=== PATIENT | female | born 1940 | race Caucasian/White ===

== ENCOUNTER 2020-11-10 11:59 | Outpatient (REF) | payer MEDICARE, SELFPAY ==
[2020-11-10 12:36] LABS: MANUAL DIFF FLAG NO
[2020-11-10 12:43] LABS: Basophils Absolute Auto 0.1 X10*3/uL (0.0-0.2); Basophils Percent Auto 1.3 % (0-2); Eosinophils Absolute Auto 0.1 X10*3/uL (0.0-0.4); Eosinophils Percent Auto 2.7 % (0-4); Hematocrit 46.8 % (37-47); Hemoglobin 15.2 g/dl (12.0-16.0); Imm Gran Abs Auto 0.01 X10*3/uL (0.00-0.03); Imm Gran Pct Auto 0.2 % (0.0-0.4); Lymphocytes Absolute Auto 1.7 X10*3/uL (1.2-4.9); Lymphocytes Percent Auto 34.6 % (20-40); Mean Corpuscular HGB Conc 32.5 g/dl (31.0-35.0); Mean Corpuscular Hemoglobin 29.3 pg (27.0-33.0); Mean Corpuscular Volume 90.3 fL (80-98); Mean Platelet Volume 10.3 fL (9.4-12.3); Monocytes Absolute Auto 0.4 X10*3/uL (0.1-1.2); Monocytes Percent Auto 8.4 % (2-11); Neutrophils Absolute Auto 2.5 X10*3/uL (2.0-8.3); Neutrophils Percent Auto 52.8 % (45-73); Platelet Count 232 X10*3/uL (160-400); Red Blood Count 5.18 X10*6/uL (4.20-5.50); Red Cell Distribution Width 13.2 % (11.0-16.0); White Blood Count 4.8 X10*3/uL (4.8-10.8)
[2020-11-10 13:45] LABS: Erythrocyte Sedimentation Rate 3 MM/HR (0-20)
== END 2020-11-10 12:00 | disposition home or self-care (01) ==
LOC: HO.LAB 11:59
PROVIDERS: PCP Internal Medicine Pulmonary Disease; Visit Provider Psychiatry & Neurology Neurology
DX: J32.9 Chronic sinusitis, unspecified (principal)
CPT/HCPCS: 36415; 85025; 85652

== ENCOUNTER 2020-12-17 13:42 | Outpatient (REF) | payer MEDICARE, SELFPAY ==
--- NOTE | 2020-12-17 13:49 | CT_ITS ---
EXAMINATION: CT HEAD WITHOUT CONTRAST CLINICAL INFORMATION: Chronic sinusitis, tension headache. COMPARISON: None TECHNIQUE: Contiguous axial imaging was performed from the skull base to vertex without intravenous administration of contrast. This CT examination was performed using dose optimization techniques as appropriate, variously including the following: *Automated exposure control *Adjustment of mA and/or kV according to patient size (this includes techniques or standardized protocols for targeted exams where dose is matched to indication/reason for exam; i.e. extremities or head) *Use of iterative reconstruction technique DLP: 603 mGy-cm FINDINGS: There is no evidence of acute intracranial hemorrhage or territorial infarction. No abnormal mass effect or midline shift is seen. Holt to white matter differentiation is well preserved. No extra-axial fluid collections are identified. The ventricles are normal in size. There is no abnormal attenuation within the brain parenchyma. There is scattered dural calcification seen along the frontal lobes and interhemispheric fissure. The osseous structures and soft tissues are normal. The mastoid air cells and visualized portions of the paranasal sinuses are well aerated. CT/CT head/brain wo con IMPRESSION: No acute intracranial process seen. The sinuses are clear.
== END 2020-12-17 13:43 | disposition home or self-care (01) ==
LOC: HO.CT 13:42
PROVIDERS: PCP Internal Medicine Pulmonary Disease; Visit Provider Psychiatry & Neurology Neurology
DX: J32.9 Chronic sinusitis, unspecified (principal)
CPT/HCPCS: 70450

== ENCOUNTER 2022-01-22 07:09 | Outpatient (REF) | payer MEDICARE, SELFPAY ==
[2022-01-22 07:20] LABS: MANUAL DIFF FLAG NO
[2022-01-22 07:37] LABS: Basophils Absolute Auto 0.1 X10*3/uL (0.0-0.2); Basophils Percent Auto 1.6 % (0-2); Eosinophils Absolute Auto 0.2 X10*3/uL (0.0-0.4); Eosinophils Percent Auto 3.4 % (0-4); Hematocrit 44.4 % (37.0-47.0); Hemoglobin 14.6 g/dl (12.0-16.0); Imm Gran Abs Auto 0.01 X10*3/uL (0.00-0.03); Imm Gran Pct Auto 0.2 % (0.0-0.4); Lymphocytes Absolute Auto 1.5 X10*3/uL (1.2-4.9); Lymphocytes Percent Auto 33.3 % (20-40); Mean Corpuscular HGB Conc 32.9 g/dl (31.0-35.0); Mean Corpuscular Hemoglobin 29.3 pg (27.0-33.0); Mean Platelet Volume 10.3 fL (9.4-12.3); Monocytes Absolute Auto 0.4 X10*3/uL (0.1-1.2); Monocytes Percent Auto 8.7 % (2-11); Neutrophils Absolute Auto 2.4 x10*3/uL (2.0-8.3); Neutrophils Percent Auto 52.8 % (45-73); Platelet Count 210 X10*3/uL (160-400); Red Blood Count 4.99 X10*6/uL (4.20-5.50); Red Cell Distribution Width 13.7 % (11.0-16.0); White Blood Count 4.5 X10*3/uL (4.8-10.8)
[2022-01-22 08:24] LABS: Vitamin D 25-OH Total 11.1 ng/mL (>30)
[2022-01-22 08:27] LABS: Alanine Aminotransferase 14 U/L (0-31); Albumin Level 4.1 g/dL (3.5-5.0); Alkaline Phosphatase 92 U/L (39-117); Anion Gap 12 (12-20); Aspartate Amino Transferase 20 U/L (5-31); Bilirubin Total 0.8 mg/dL (0.0-1.0); Blood Urea Nitrogen 20 mg/dL (9-16); Calcium 9.7 mg/dL (8.4-10.2); Carbon Dioxide 27 mmol/L (22-29); Chloride 107 mmol/L (96-108); Cholesterol 201 mg/dL; Estimated Glomerular Filt Rate > 60; Glucose Fasting 94 mg/dL (60-99); HDL Cholesterol 85 mg/dL; LDL Cholesterol Calculated 105 mg/dl; Potassium 3.8 mmol/L (3.3-5.1); Sodium 142 mmol/L (135-145); Total Protein 6.9 g/dL (6.5-8.0); Triglycerides 58 mg/dL
== END 2022-01-22 07:10 | disposition home or self-care (01) ==
LOC: HO.LAB 07:09
PROVIDERS: PCP Internal Medicine; Visit Provider Internal Medicine
DX: E78.00 Pure hypercholesterolemia, unspecified (principal); M54.9 Dorsalgia, unspecified
CPT/HCPCS: 36415; 80053; 80061; 82306; 85025

== ENCOUNTER 2022-01-27 12:37 | Outpatient (REF) | payer MEDICARE, SELFPAY ==
--- NOTE | ~2022-01-27 | MM_ITS ---
EXAMINATION: BONE DENSITOMETRY CLINICAL INDICATION: Postmenopausal. COMPARISON: None (current study represents initial baseline exam). TECHNIQUE: Using a [employer]ORT[employer] DXA System (software version: 13.1) manufactured by [employer], dual-energy x-ray absorptiometry was performed of the lumbar spine and left hip. The images are of good technical quality. Summary results are attached. FINDINGS: AP SPINE L1-L4: BMD 0.913 g/cm2, Z-score -0.5, T-score -2.2, osteopenia. LEFT FEMUR, NECK: BMD 0.625 g/cm2, Z-score -0.9, T-score -3.0, osteoporosis. LEFT FEMUR, TOTAL: BMD 0.643 g/cm2, Z-score -1.0, T-score -2.9, osteoporosis. IDENTIFIED RISK FACTORS: Osteoporosis. Early menopause, secondary osteoporosis, left oophorectomy. HISTORY OF FRACTURE: None listed. MEDICATIONS: Calcium supplements or multivitamin, vitamin D. MM/XR DEXA axial skeleton IMPRESSION: 1. DIAGNOSIS: Osteoporosis based on the lowest T-score value of -3.0 in the femoral neck applying World Health Organization criteria. 2. 10-YEAR FRACTURE RISK PREDICTION, FRAX: According to the guidelines, FRAX calculation should only be performed on patients in the osteopenia bone density category. Therefore, FRAX was not performed on this patient. 3. Treatment Recommendations: NOF guidelines recommend consideration for treatment in postmenopausal women and men age 50 and older presenting with the following: -A hip or vertebral (clinical or morphometric) fracture. -T-score less than or equal to -2.5 at the femoral neck or spine after appropriate evaluation to exclude secondary causes. -Low bone mass at the hip or spine and a 10-year fracture probability by FRAX of greater than or equal to 3% for hip fracture or greater than or equal to 20% for major osteoporotic fracture based on the [place] adapted WHO algorithm. 4. Other Recommendations: All treatment decisions require clinical judgment and consideration of individual patient factors, including patient preferences, comorbidities, previous drug use, risk factors not captured in the FRAX model (e.g. frailty, falls, vitamin D deficiency, increased bone turnover, interval significant decline in bone density) and possible under or overestimation of fracture risk by FRAX. Additional medical evaluation for secondary cause of low bone mineral density may be appropriate. FUTURE SCAN RECOMMENDATION: People with diagnosed cases of osteoporosis or at high risk for fracture should have regular bone mineral density tests. For patients eligible for Medicare, routine testing is allowed once every 2 years. The testing frequency can be increased to one year for patients who have rapidly progressing disease, those who are receiving or discontinuing medical therapy to restore bone mass, or have additional risk factors.
--- NOTE | ~2022-01-27 | MM_ITS ---
EXAMINATION: MM SCREENING DIGITAL BREAST TOMOSYNTHESIS, BILATERAL CLINICAL INFORMATION: Screening. Asymptomatic. The lifetime risk of breast cancer based on the Tyrer-Cuzick Model is 2%. COMPARISON: Outside mammography: 12/24/2020, 12/23/2019, 12/20/2018, 12/07/2017 ([facility]). TECHNIQUE: Digital breast tomosynthesis is performed in both the craniocaudal and mediolateral oblique views along with computer-aided detection (CAD). Synthesized 2D images are generated from the tomosynthesis. FINDINGS: The breasts are almost entirely fatty (ACR BI-RADS breast composition Category a). Background stromal and fibroglandular densities are stable. There is no interval mass or architectural abnormality or abnormal calcifications. 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 The axilla and skin contours are unremarkable. There are no significant changes. MM/MM tomosynthesis screening BI IMPRESSION: No significant changes from prior studies. ASSESSMENT: BI-RADS 2: Benign RECOMMENDATION: Routine annual mammography screening. This patient's information was entered into a reminder system with a target due date for their next mammogram.
== END 2022-01-27 12:38 | disposition home or self-care (01) ==
LOC: HO.MAMMO 12:37
PROVIDERS: PCP Internal Medicine; Visit Provider Internal Medicine
DX: Z13.820 Encounter for screening for osteoporosis (principal); Z78.0 Asymptomatic menopausal state; Z12.31 Encounter for screening mammogram for malignant neoplasm of breast
CPT/HCPCS: 77063; 77067; 77080

== ENCOUNTER 2022-01-31 08:41 | Day surgery (SDC) | payer MEDICARE, SELFPAY ==
[2022-01-24 14:31] VITALS: BMI 29.2
--- NOTE | 2022-01-27 10:26 | HP_ITS ---
DATE OF SERVICE: 01/31/2022 HISTORY OF PRESENT ILLNESS: The patient is an 81-year-old female who is scheduled for cataract surgery with Dr. Smith. She was seen in the office 01/24/2022 for periodic checkup. The patient takes meloxicam 7.5 mg p.r.n. for arthritis pain. She lists allergies to Excedrin, Bactrim, and Levaquin. PAST MEDICAL HISTORY: Significant for back pain, elevated cholesterol, tension headaches, and hypertension last year. PAST SURGICAL HISTORY: Appendectomy in 28, TNA 3 years old, history of ovarian cysts. FAMILY HISTORY: Mother at 93. Father at 85. One brother at 65. One sister is a prison. SOCIAL HISTORY: Lives alone. No children. She is a piano artist. REVIEW OF SYSTEMS: No fevers or chills. No weight change. No chest pains or palpitations. No shortness of breath. No abdominal pain or heartburn. No dysuria. Some arthritis in her back. Appetite is normal. Sleep is occasionally disrupted. No other complaints. PHYSICAL EXAMINATION: GENERAL: She is awake and alert, in no distress. VITAL SIGNS: Temperature is 99, blood pressure 130/80, respirations 12, pulse 72. HEENT: Pupils equal. TMs clear. Pharynx clear. Some nasal edema. HEART: Sounds S1, S2. Regular rate. LUNGS: Clear. ABDOMEN: Soft, nontender. Positive bowel sounds. No HSM. EXTREMITIES: No clubbing, cyanosis, or edema. Pulses are intact. NEUROLOGIC: Cranial nerves II through XII are intact. Otherwise nonfocal. She is awake and alert. ASSESSMENT AND PLAN: 1. Preop cataracts, medically stable for the proposed procedure. 2. Low vitamin D, taking p.o. 3. Elevated cholesterol. She has a good risk ratio and is not on any medication. She is medically stable for the proposed procedure. MD LEDA Rolle/DANY / [id number]
--- NOTE | 2022-01-27 12:59 | MHC.SHP ---
Pre-Procedural Eval Section A Date of Service: 01/27/22 The patient is an INPATIENT: No Changes since office visit: No Cold of Flu in the past 2 weeks, No New Medical Problems, No Changes in Medication and No Patient answered all questions The History & Physical has been completed within 30 days and I have reviewed it.: Yes Section B Chief Complaint: cataract right eye Allergies: Allergies Allergy/AdvReac Type Severity Reaction Status Date / Time acetaminophen Allergy cant Verified 01/24/22 14:28 [From Excedrin Extra remember Strength] Rxn so long ago aspirin Allergy cant Verified 01/24/22 14:28 [From Excedrin Extra remember Strength] Rxn so long ago caffeine Allergy cant Verified 01/24/22 14:28 [From Excedrin Extra remember Strength] Rxn so long ago levofloxacin [From Levaquin] Allergy Swelling Verified 01/24/22 14:28 of ears, Burning of Eyes sulfamethoxazole Allergy tearing Verified 01/24/22 14:28 [From Bactrim] and burning of eyes trimethoprim [From Bactrim] Allergy tearing Verified 01/24/22 14:28 and burning of eyes Plan Diagnosis/Plan: Unchanged I have reviewed the history and physical and performed a pertinent physical examination on my patient. No changes have occurred unless specified.
[2022-01-31 09:58] VITALS: BP 143/72; PULSE 93; RESP 18; TEMP 36.3; O2SAT 94
[2022-01-31] MEDS: Tetracaine HCl/PF 0.5% Oph Sol 4 ML DROPS 1 DROP EYE-RIGHT (10:02)
--- NOTE | 2022-01-31 10:03 | HO.ANESPROP2 ---
HPI - Anesthesia Eval Consult details Narrative: Right eye Cataract [facility] Past Medical History Medical History (Updated 01/24/22 @ 14:24 by Francisca Gil, RN) Arthritis Back pain Cataracts, bilateral COVID-19 vaccine series completed Lichen sclerosus Family History Family history of problems with anesthesia: No Surgical History Surgical History (Updated 01/24/22 @ 14:23 by Francisca Gil RN) History of tonsillectomy and adenoidectomy Hx of unilateral oophorectomy History of Problems with Anesthesia: No Social History Social History Are you a primary health care / medical job titles to a significant other at home: No Do you presently have visiting nurse or other home services: No Patient Tobacco Use Status: Never used Tobacco Second Hand Smoke Exposure: No Use of substances other than those prescribed or required for medical reasons: No Have you been hit, kicked, punched, or otherwise hurt by someone within the past year? If so, by whom?: No Are you DNR?: No Advance Directives: No Advance Directives Information Provided: No Advance Directives on File: No Recently lost weight without trying: No Eating poorly because of decreased appetite: No Nutrition Risks: No Nutritional Risk Patient : No : No Poor oral hygiene: No (Capped teeth) Meds Allergies Allergy/AdvReac Type Severity Reaction Status Date / Time acetaminophen Allergy cant Verified 01/24/22 14:28 [From Excedrin Extra remember Strength] Rxn so long ago aspirin Allergy cant Verified 01/24/22 14:28 [From Excedrin Extra remember Strength] Rxn so long ago caffeine Allergy cant Verified 01/24/22 14:28 [From Excedrin Extra remember Strength] Rxn so long ago levofloxacin [From Levaquin] Allergy Swelling Verified 01/24/22 14:28 of ears, Burning of Eyes sulfamethoxazole Allergy tearing Verified 01/24/22 14:28 [From Bactrim] and burning of eyes trimethoprim [From Bactrim] Allergy tearing Verified 01/24/22 14:28 and burning of eyes Active Medications: Current Medications Lactated Ringer's (Lr) 500 mls @ 50 mls/hr IVCONT .Q10H THEE Povidone Iodine (Povidone Iodine 5 % Ophth Soln 30 Ml Bottle) 1 appl EYE-RIGHT PREOP PRN PRN Reason: Pre-Op Surgical Implant Prophy Home Medications Medication Instructions Recorded Confirmed Last Taken Type clobetasol 01/24/22 01/24/22 Unknown History meloxicam 7.5 mg tablet 1 tab PO DAILY PRN 01/24/22 01/24/22 Unknown History Exam Exam Date and Time: January 31, 2022 1003 Height,Weight and Vital Signs: Height 5 ft Weight 68.039 kg Last Vital Signs Temp 97.3 F 01/31/22 09:58 Pulse 93 01/31/22 09:58 Resp 18 01/31/22 09:58 BP 143/72 H 01/31/22 09:58 Pulse Ox 94 01/31/22 09:58 Airway Mallampati Class: II TM Dist: >3cm Neck ROM: Full Loose/Missing/Broken Teeth: No Heart: rrr+s1s2 Lungs: cta b/l Assessment and Plan Assessment Anesthesia Assessment: Anesthesia Plan Discussed and Chart Reviewed Final Anesthetic Review Family History of Problems with Anesthesia: No History of Problems with Anesthesia: No NPO: Yes ASA Class: II Final Preanesthetic Review: No Changes in Pt Med Stat, Meds/Allgs Chart Reviewed, Consent Obtained/Reviewed and Anes Risks/Benef Reviewed Patient Risk: Intermediate Procedure Risk: Low Assessment/Block/Sedation in SS: Assess/Block/Sedation-SS Anesthetic Plan Anesthetic Plan: MAC: and Agree w/ Assess. and Plan Disposition: Standard PACU
[2022-01-31] MEDS: Tropicamide 1 % Ophth Sol 3 ML BTL 1 DROP EYE-RIGHT ×3 (10:04→10:10)
[2022-01-31] MEDS: Phenylephrine HCL 2.5% Oph SoL 2 ML BOTTLE 1 DROP EYE-RIGHT ×3 (10:06→10:12)
[2022-01-31 10:21] VITALS: BP 143/72; PULSE 93; RESP 20; TEMP 36.2; O2SAT 94
--- NOTE | 2022-01-31 11:01 | HO.PNOPHT ---
Ophthalmology Procedure Procedure Date of Service: 01/31/22 Ophthalmology Viscoelastic: Jonathan Hardent Dual Pack Pro Ophthalmology Lenses: TECDONYA [id number] (15) Procedure Notes: PREOPERATIVE DIAGNOSIS: Decreased visual acuity right eye secondary to cataract POSTOPERATIVE DIAGNOSIS: Same PROCEDURE: Right cataract extraction with intraocular lens insertion SURGEON: Obey Smith M.D. ANESTHESIA: Topical/MAC ESTIMATED BLOOD LOSS: None COMPLICATIONS: None After obtaining informed consent, the patient was brought to the operating room suite and placed in the supine position. After adequate sedation per anesthesia, topical drops of Tetracaine were given to the right eye. The eye was then prepped and draped in the usual sterile fashion. The operating room microscope was then positioned over the operative eye and a lid speculum placed. A paracentesis was created. Viscoelastic was then instilled into the anterior chamber. A three plane incision was then created temporally, utilizing a 2.85 mm keratome. Capsulotomy forceps were then utilized to create a circular tear capsulotomy. Hydrodissection and hydrodelineation were carried out until adequate mobilization of the nucleus occurred. Phacoemulsification was then utilized to remove the dense central nucleus followed by removal of the cortical material utilizing the automated aspiration irrigation unit. Viscoelastic was instilled into the posterior capsular bag followed by placement of a posterior chamber intraocular lens without difficulty. The residual Viscoelastic was then removed utilizing the automated IA machine. The wound was checked and found to be watertight. The patient tolerated the procedure well and the lid speculum was removed. Intracameral injection of Vigamox 0.1 mL followed by a subtenon injection of Kenalog-40 0.2 mL were administered. The patient will be seen in the a.m.
[2022-01-31 11:22] VITALS: BP 139/74; PULSE 70; RESP 16; TEMP 36.4; O2SAT 100
== END 2022-01-31 11:35 | disposition home or self-care (01) ==
PROVIDERS: PCP Internal Medicine; Visit Provider Ophthalmology
PROC: (CPT 66985; principal; 2022-01-31 10:50)
DX: H25.11 Age-related nuclear cataract, right eye (principal); H54.7 Unspecified visual loss; Z83.511 Family history of glaucoma; E78.00 Pure hypercholesterolemia, unspecified; I10 Essential (primary) hypertension; E55.9 Vitamin D deficiency, unspecified; Z79.899 Other long term (current) drug therapy; Z88.1 Allergy status to other antibiotic agents; Z88.0 Allergy status to penicillin
CPT/HCPCS: 66984; J2250; J3010; J3300; V2632

== ENCOUNTER 2022-02-14 10:42 | Day surgery (SDC) | payer MEDICARE, SELFPAY ==
[2022-01-24 14:36] VITALS: BMI 29.2
--- NOTE | 2022-02-11 10:08 | HO.ANESPROP2 ---
Documented by User: Cecilia Dumont NP 02/11/22 10:09 HPI - Anesthesia Eval Consult details Narrative: 81yo F for Left Cataract Extraction IOL Insertion PCP cleared Right eye 01/31/22 [facility] Past Medical History Medical History (Updated 01/24/22 @ 14:24 by Francisca Gil, RN) Arthritis Back pain Cataracts, bilateral COVID-19 vaccine series completed Lichen sclerosus Family History Family history of problems with anesthesia: No Surgical History Surgical History (Updated 01/24/22 @ 14:23 by Francisca Gil RN) History of tonsillectomy and adenoidectomy Hx of unilateral oophorectomy History of Problems with Anesthesia: No Social History Social History Are you a primary pharmacy customer care specialist to a significant other at home: No Do you presently have visiting nurse or other home services: No Patient Tobacco Use Status: Never used Tobacco Second Hand Smoke Exposure: No Use of substances other than those prescribed or required for medical reasons: No Have you been hit, kicked, punched, or otherwise hurt by someone within the past year? If so, by whom?: No Are you DNR?: No Advance Directives: No Advance Directives Information Provided: No Advance Directives on File: No Recently lost weight without trying: No Eating poorly because of decreased appetite: No Nutrition Risks: No Nutritional Risk Patient : No : No Poor oral hygiene: No (Capped teeth) Meds Allergies Allergy/AdvReac Type Severity Reaction Status Date / Time acetaminophen Allergy cant Verified 01/24/22 14:28 [From Excedrin Extra remember Strength] Rxn so long ago aspirin Allergy cant Verified 01/24/22 14:28 [From Excedrin Extra remember Strength] Rxn so long ago caffeine Allergy cant Verified 01/24/22 14:28 [From Excedrin Extra remember Strength] Rxn so long ago levofloxacin [From Levaquin] Allergy Swelling Verified 01/24/22 14:28 of ears, Burning of Eyes sulfamethoxazole Allergy tearing Verified 01/24/22 14:28 [From Bactrim] and burning of eyes trimethoprim [From Bactrim] Allergy tearing Verified 01/24/22 14:28 and burning of eyes Home Medications Medication Instructions Recorded Confirmed Last Taken Type clobetasol 01/24/22 01/24/22 Unknown History meloxicam 7.5 mg tablet 1 tab PO DAILY PRN 01/24/22 01/24/22 Unknown History Exam Exam Date and Time: February 11, 2022 1008 Height,Weight and Vital Signs: Height 5 ft Weight 68.039 kg Assessment and Plan Assessment Anesthesia Assessment: Chart Reviewed Final Anesthetic Review Family History of Problems with Anesthesia: No History of Problems with Anesthesia: No Documented by User: Will Acosta MD 02/14/22 11:59 PMFSH Past Medical History Medical History (Updated 01/24/22 @ 14:24 by Francisca Gil RN) Arthritis Back pain Cataracts, bilateral COVID-19 vaccine series completed Lichen sclerosus Surgical History Surgical History (Updated 01/24/22 @ 14:23 by Francisca Gil RN) History of tonsillectomy and adenoidectomy Hx of unilateral oophorectomy Social History Social History Are you a primary pharmacy customer care specialist to a significant other at home: No Do you presently have visiting nurse or other home services: No Patient Tobacco Use Status: Never used Tobacco Second Hand Smoke Exposure: No Use of substances other than those prescribed or required for medical reasons: No Have you been hit, kicked, punched, or otherwise hurt by someone within the past year? If so, by whom?: No Are you DNR?: No Advance Directives: No Advance Directives Information Provided: No Advance Directives on File: No Recently lost weight without trying: No Eating poorly because of decreased appetite: No Nutrition Risks: No Nutritional Risk Patient : No : No Poor oral hygiene: No (Capped teeth) Meds Allergies Allergy/AdvReac Type Severity Reaction Status Date / Time acetaminophen Allergy cant Verified 01/24/22 14:28 [From Excedrin Extra remember Strength] Rxn so long ago aspirin Allergy cant Verified 01/24/22 14:28 [From Excedrin Extra remember Strength] Rxn so long ago caffeine Allergy cant Verified 01/24/22 14:28 [From Excedrin Extra remember Strength] Rxn so long ago levofloxacin [From Levaquin] Allergy Swelling Verified 01/24/22 14:28 of ears, Burning of Eyes sulfamethoxazole Allergy tearing Verified 01/24/22 14:28 [From Bactrim] and burning of eyes trimethoprim [From Bactrim] Allergy tearing Verified 01/24/22 14:28 and burning of eyes Home Medications Medication Instructions Recorded Confirmed Last Taken Type clobetasol 01/24/22 01/24/22 Unknown History meloxicam 7.5 mg tablet 1 tab PO DAILY PRN 01/24/22 01/24/22 Unknown History Exam Airway Mallampati Class: II TM Dist: >3cm Neck ROM: Full Loose/Missing/Broken Teeth: No Heart: rrr+s1s2 Lungs: cta b/l Assessment and Plan Assessment Anesthesia Assessment: Anesthesia Plan Discussed Final Anesthetic Review NPO: Yes ASA Class: III Final Preanesthetic Review: No Changes in Pt Med Stat, Meds/Allgs Chart Reviewed, Consent Obtained/Reviewed and Anes Risks/Benef Reviewed Patient Risk: Intermediate Procedure Risk: Low Assessment/Block/Sedation in SS: Assess/Block/Sedation-SS Anesthetic Plan Anesthetic Plan: MAC: and Agree w/ Assess. and Plan Disposition: Standard PACU
--- NOTE | 2022-02-11 14:41 | MHC.SHP ---
Pre-Procedural Eval Section A Date of Service: 02/11/22 The patient is an INPATIENT: No Changes since office visit: No Cold of Flu in the past 2 weeks, No New Medical Problems, No Changes in Medication and No Patient answered all questions The History & Physical has been completed within 30 days and I have reviewed it.: Yes Section B Chief Complaint: cataract left eye Allergies: Allergies Allergy/AdvReac Type Severity Reaction Status Date / Time acetaminophen Allergy cant Verified 01/24/22 14:28 [From Excedrin Extra remember Strength] Rxn so long ago aspirin Allergy cant Verified 01/24/22 14:28 [From Excedrin Extra remember Strength] Rxn so long ago caffeine Allergy cant Verified 01/24/22 14:28 [From Excedrin Extra remember Strength] Rxn so long ago levofloxacin [From Levaquin] Allergy Swelling Verified 01/24/22 14:28 of ears, Burning of Eyes sulfamethoxazole Allergy tearing Verified 01/24/22 14:28 [From Bactrim] and burning of eyes trimethoprim [From Bactrim] Allergy tearing Verified 01/24/22 14:28 and burning of eyes Plan Diagnosis/Plan: Unchanged I have reviewed the history and physical and performed a pertinent physical examination on my patient. No changes have occurred unless specified.
[2022-02-14 11:07] VITALS: BP 107/68; PULSE 84; RESP 16; TEMP 36.4; O2SAT 95
[2022-02-14] MEDS: Tetracaine HCl/PF 0.5% Oph Sol 4 ML DROPS 1 DROP EYE-LEFT (11:21)
[2022-02-14] MEDS: Lactated Ringers 500 ML 50 ML IV (11:21)
[2022-02-14] MEDS: Tropicamide 1 % Ophth Sol 3 ML BTL 1 DROP EYE-LEFT ×3 (11:22→11:30)
[2022-02-14] MEDS: Phenylephrine HCL 2.5% Oph SoL 2 ML BOTTLE 1 DROP EYE-LEFT ×3 (11:26→11:32)
--- NOTE | 2022-02-14 12:27 | HO.PNOPHT ---
Ophthalmology Procedure Procedure Date of Service: 02/14/22 Ophthalmology Viscoelastic: Healsaran Duet Dual Pack Pro Ophthalmology Lenses: TECDONYA [id number] (15) Procedure Notes: PREOPERATIVE DIAGNOSIS: Decreased visual acuity left eye secondary to cataract POSTOPERATIVE DIAGNOSIS: Same PROCEDURE: Left cataract extraction with intraocular lens insertion SURGEON: Obey Smith M.D. ANESTHESIA: Topical/MAC ESTIMATED BLOOD LOSS: None COMPLICATIONS: None After obtaining informed consent, the patient was brought to the operation room suite and placed in the supine position. After adequate sedation per anesthesia, topical drops of Tetracaine were given to the left eye. The eye was then prepped and draped in the usual sterile fashion. The operating room microscope was then positioned over the operative eye and a lid speculum placed. A paracentesis was created. Viscoelastic was then instilled into the anterior chamber. A three plane incision was then created temporally, utilizing a 2.85 mm keratome. Capsulotomy forceps were then utilized to create a circular tear capsulotomy. Hydrodissection and hydrodelineation were carried out until adequate mobilization of the nucleus occurred. Phacoemulsification was then utilized to remove the dense central nucleus followed by removal of the cortical material utilizing the automated aspiration irrigation unit. Viscoat elastic was instilled into the posterior capsular bag followed by placement of a posterior chamber intraocular lens without difficulty. The residual Viscoat elastic was then removed utilizing the automated IA machine. The wound was check and found to be watertight. The patient tolerated the procedure well and the lid speculum was removed. Intracameral injection of Vigamox 0.1 mL followed by a subtenon injection of Kenalog-40 0.2 mL were administered. The patient will be seen in the a.m.
[2022-02-14 12:51] VITALS: BP 156/87; PULSE 77; RESP 18; TEMP 36.3; O2SAT 96
== END 2022-02-14 13:08 | disposition home or self-care (01) ==
PROVIDERS: PCP Internal Medicine; Visit Provider Ophthalmology
PROC: (CPT 66985; principal; 2022-02-14 12:50)
DX: H25.12 Age-related nuclear cataract, left eye (principal); H54.7 Unspecified visual loss; Z83.511 Family history of glaucoma; I10 Essential (primary) hypertension; E78.00 Pure hypercholesterolemia, unspecified; Z79.899 Other long term (current) drug therapy; Z88.1 Allergy status to other antibiotic agents
CPT/HCPCS: 66984; J3010; J3300; V2632

== ENCOUNTER 2023-02-22 13:57 | Outpatient (REF) | payer MEDICARE, SELFPAY ==
--- NOTE | ~2023-02-22 | MM_ITS ---
EXAMINATION: MM SCREENING DIGITAL BREAST TOMOSYNTHESIS, BILATERAL CLINICAL INFORMATION: Screening. Asymptomatic. The lifetime risk of breast cancer based on the Tyrer-Cuzick Model is 2%. COMPARISON: Mammography: 01/27/2022,, 12/23/2019, 12/20/2018 TECHNIQUE: Digital breast tomosynthesis is performed in both the craniocaudal and mediolateral oblique views along with computer-aided detection (CAD). Synthesized 2D images are generated from the tomosynthesis. FINDINGS: The breasts are almost entirely fatty (ACR BI-RADS breast composition Category a). There is no interval mass or architectural abnormality or developing density. Grouped calcifications anterior upper outer left breast are again seen, circumferential oriented and most coarse, suggesting degenerating fibroadenoma. The axilla are unremarkable. The skin contours are smooth. There are no significant changes from prior exams. MM/MM tomosynthesis screening BI IMPRESSION: No mammographic evidence of malignancy. ASSESSMENT: BI-RADS 2: Benign RECOMMENDATION: Routine annual mammography screening. This patient's information was entered into a reminder system with a target due date for their next mammogram.
== END 2023-02-22 13:58 | disposition home or self-care (01) ==
LOC: HO.MAMMO 13:57
PROVIDERS: PCP Internal Medicine; Visit Provider Internal Medicine
DX: Z12.31 Encounter for screening mammogram for malignant neoplasm of breast (principal)
CPT/HCPCS: 77063; 77067

== ENCOUNTER 2023-04-10 08:22 | Outpatient (REF) | payer MEDICARE, SELFPAY ==
--- NOTE | ~2023-04-10 | XR_ITS ---
EXAMINATION: XR CERVICAL SPINE CLINICAL INFORMATION: Neck pain COMPARISON: None available. TECHNIQUE: 6 views of the cervical spine, inclusive of flexion and extension views, were obtained. FINDINGS: There is normal cervical lordosis. The vertebral heights and alignment is normal. There is loss of C4-C5, C5-C6 and C6-C7 disc heights with mild ventral spondylosis. On oblique views the neural foramina are patent. No visible acute fracture, dislocation or subluxation seen. The prevertebral and paravertebral soft tissues are normal. XR/XR cervical spine 5V IMPRESSION: Degenerative disc changes C4-C5, C5-C6 and C6-C7 disc levels with ventral spondylosis. No visible acute fracture, dislocation or subluxation seen.
[2023-04-10 08:39] LABS: MANUAL DIFF FLAG NO
[2023-04-10 08:49] LABS: Basophils Absolute Auto 0.1 X10*3/uL (0.0-0.2); Basophils Percent Auto 1.6 % (0-2); Eosinophils Absolute Auto 0.3 X10*3/uL (0.0-0.4); Eosinophils Percent Auto 6.1 % (0-4); Hematocrit 43.4 % (37.0-47.0); Hemoglobin 14.5 g/dl (12.0-16.0); Imm Gran Abs Auto 0.01 X10*3/uL (0.00-0.03); Imm Gran Pct Auto 0.2 % (0.0-0.4); Lymphocytes Absolute Auto 1.6 X10*3/uL (1.2-4.9); Lymphocytes Percent Auto 32.7 % (20-40); Mean Corpuscular HGB Conc 33.4 g/dl (31.0-35.0); Mean Corpuscular Hemoglobin 29.3 pg (27.0-33.0); Mean Corpuscular Volume 87.7 fL (80.0-98.0); Mean Platelet Volume 10.1 fL (9.4-12.3); Monocytes Absolute Auto 0.4 X10*3/uL (0.1-1.2); Monocytes Percent Auto 7.7 % (2-11); Neutrophils Absolute Auto 2.6 x10*3/uL (2.0-8.3); Neutrophils Percent Auto 51.7 % (45-73); Platelet Count 202 X10*3/uL (160-400); Red Blood Count 4.95 X10*6/uL (4.20-5.50); White Blood Count 4.9 X10*3/uL (4.8-10.8)
[2023-04-10 09:37] LABS: Alanine Aminotransferase 13 U/L (0-31); Albumin Level 3.9 g/dL (3.5-5.0); Alkaline Phosphatase 81 U/L (39-117); Anion Gap 12 (12-20); Aspartate Amino Transferase 18 U/L (5-31); Bilirubin Total 0.8 mg/dL (0.0-1.0); Blood Urea Nitrogen 25 mg/dL (9-16); Calcium 9.2 mg/dL (8.4-10.2); Carbon Dioxide 25 mmol/L (22-29); Chloride 110 mmol/L (96-108); Estimated Glomerular Filt Rate > 60; Glucose Random 99 mg/dL (60-115); Potassium 3.9 mmol/L (3.3-5.1); Sodium 143 mmol/L (135-145); Total Protein 6.2 g/dL (6.5-8.0)
[2023-04-10 10:02] LABS: Free T4 (Free Thyroxine) 0.92 ng/dL (0.71-1.85); Thyroid Stimulating Hormone 1.87 uIU/mL (0.32-4.0); Vitamin B12 191 pg/mL (200-900); Vitamin D 25-OH Total 37.8 ng/mL (>30)
== END 2023-04-10 08:23 | disposition home or self-care (01) ==
LOC: HO.XRAY 08:22
PROVIDERS: PCP Internal Medicine; Visit Provider Internal Medicine
DX: E55.9 Vitamin D deficiency, unspecified (principal); M81.0 Age-related osteoporosis without current pathological fracture; R53.83 Other fatigue; M54.2 Cervicalgia
CPT/HCPCS: 36415; 72050; 80053; 82306; 82607; 84439; 84443; 85025

== ENCOUNTER 2023-08-18 15:02 | Outpatient (REF) | payer MEDICARE, SELFPAY ==
--- NOTE | ~2023-08-18 | US_ITS ---
EXAMINATION: US EXTRACRANIAL CAROTID DUPLEX, BILATERAL CLINICAL INFORMATION: Dizziness. COMPARISON: None available. TECHNIQUE: Real-time ultrasound and Doppler techniques (integrating B-mode 2-D vascular images, Doppler spectral analysis and color-flow Doppler imaging) were utilized to interrogate the extracranial carotid arteries, the vertebral arteries and proximal subclavian arteries bilaterally. The degree of stenosis is determined by criteria similar to NASCET. FINDINGS: Right Side: 1. There is mild atherosclerotic plaque seen in the bifurcation/proximal ICA region. 2. The common carotid artery PSV proximally is 101 cm/s and distally 96 cm/s. 3. The proximal internal carotid artery velocities are 93 cm/s systolic and 22 cm/s diastolic. 4. The proximal external carotid artery PSV is 150 cm/s. 5. The vertebral artery shows antegrade flow. 6. The subclavian artery waveforms are normal. Left Side: 1. There is mild atherosclerotic plaque seen in the bifurcation/proximal ICA region. 2. The common carotid artery PSV proximally is 107 cm/s and distally 88 cm/s. 3. The proximal internal carotid artery velocities are 92 cm/s systolic and 32 cm/s diastolic. 4. The proximal external carotid artery PSV is 109 cm/s. 5. The vertebral artery shows antegrade flow. 6. The subclavian artery waveforms are normal. US/US carotid duplex BI IMPRESSION: 1. RIGHT: Minimal, non-hemodynamically significant stenosis of the proximal right internal carotid artery corresponding to a 0-49% stenosis by velocity criteria. 2. LEFT: Minimal, non-hemodynamically significant stenosis of the proximal left internal carotid artery corresponding to a 0-49% stenosis by velocity criteria.
== END 2023-08-18 15:03 | disposition home or self-care (01) ==
LOC: HO.US 15:02
PROVIDERS: PCP Internal Medicine; Visit Provider Internal Medicine
DX: R42 Dizziness and giddiness (principal); Z91.81 History of falling
CPT/HCPCS: 93880

== ENCOUNTER 2023-09-14 09:29 | Emergency (ER) | payer MEDICARE, SELFPAY ==
--- NOTE | 2023-09-14 | ECG_ITS ---
Test Reason : dizziness Blood Pressure : / mmHG Vent. Rate : 085 BPM Atrial Rate : 085 BPM P-R Int : 126 ms QRS Dur : 082 ms QT Int : 366 ms P-R-T Axes : 075 -08 005 degrees QTc Int : 435 ms Normal sinus rhythm Nonspecific T wave abnormality Abnormal ECG No previous ECGs available Referred By: Generic ED Physician Electronically Signed By:BRIGIDO REDDY MD
--- NOTE | ~2023-09-14 | CT_ITS ---
EXAMINATION: CT HEAD WITHOUT CONTRAST CLINICAL INFORMATION: Dizzy COMPARISON: 12/17/2020 TECHNIQUE: Contiguous axial imaging was performed from the skull base to vertex without intravenous administration of contrast. This CT examination was performed using dose optimization techniques as appropriate, variously including the following: *Automated exposure control *Adjustment of mA and/or kV according to patient size (this includes techniques or standardized protocols for targeted exams where dose is matched to indication/reason for exam; i.e. extremities or head) *Use of iterative reconstruction technique DLP: 558 mGy-cm FINDINGS: The ventricles and sulci are normal in size and configuration. No acute hemorrhage, mass effect or shift is evident. Holt-white differentiation is maintained. In the posterior fossa, the brainstem, cerebellum and fourth ventricle image normally. The orbits and calvarium are intact. The globes are aphakic. The paranasal sinuses and mastoid air cells are well pneumatized and clear. CT/CT head/brain wo IV con IMPRESSION: 1. Unremarkable noncontrast brain CT. No acute hemorrhage, mass effect or shift.
[2023-09-14 09:45] VITALS: BP 146/64; PULSE 77; RESP 18; TEMP 36.7; O2SAT 96; BMI 30.9
--- NOTE | 2023-09-14 10:02 | ED_ITS ---
HPI - General Adult General Chief complaint: Dizziness Stated complaint: dizzy Time Seen by Provider: 09/14/23 10:02 Source: patient Mode of arrival: ambulatory Limitations: no limitations History of Present Illness HPI narrative: Patient is an 82 year old assigned female at with a history of cataracts and arthritis presenting to the emergency department today with intermittent dizziness. Patient states that she has moments where she gets these feelings in her head that feels like a fuzzy sensation. Patient states that these episodes happen with a headache and feel like they originate behind her eyes. Patient states that she does not feel as if she is spinning or the room is spinning. Patient states that she does not feel as though she is going to pass out. Patient denies any lightheadedness, abdominal pain, nausea, vomiting, fever, chills, blurry vision, double vision, loss of vision, chest pain, difficulty breathing, shortness of breath, back pain, night sweats, pain with urination, increased urinary frequency, increased urinary urgency, blood in her urine or stool, syncope or a near syncopal episode, recent trauma or falls, bowel incontinence, bladder incontinence, bowel retention, bladder retention, or any other complaints at this time. Onset (ago): month(s) Severity: mild Pain Consistency: intermittent Relieving factors: none Exacerbating factors: none Associated symptoms: denies other symptoms Treatments prior to arrival: none Related Data Home Medications Medication Instructions Recorded Confirmed clobetasol 01/24/22 01/24/22 meloxicam 7.5 mg tablet 1 tab PO DAILY PRN Pain 01/24/22 01/24/22 Allergies Allergy/AdvReac Type Severity Reaction Status Date / Time acetaminophen Allergy cant Verified 01/24/22 14:28 [From Excedrin Extra remember Strength] Rxn so long ago aspirin Allergy cant Verified 01/24/22 14:28 [From Excedrin Extra remember Strength] Rxn so long ago caffeine Allergy cant Verified 01/24/22 14:28 [From Excedrin Extra remember Strength] Rxn so long ago levofloxacin [From Levaquin] Allergy Swelling Verified 01/24/22 14:28 of ears, Burning of Eyes sulfamethoxazole Allergy tearing Verified 01/24/22 14:28 [From Bactrim] and burning of eyes trimethoprim [From Bactrim] Allergy tearing Verified 01/24/22 14:28 and burning of eyes Review of Systems 2 Constitutional: Constitutional: Reports no additional constitutional complaints, Denies chills, Denies fever(s) and Denies night sweats Eyes: Eyes: Reports no additional eye complaints, Denies blurry vision, Denies change in vision, Denies diplopia, Denies eye discharge, Denies loss of vision and Denies eye pain ENT: Comments: intermittent fuzzy feeling Cardiovascular: Cardiovascular: Reports no additional cardiovascular complaints, Denies chest pain, Denies lightheadedness, Denies Loss of Consciousness and Denies dyspnea Respiratory: Respiratory: Reports no additional respiratory complaints and Denies dyspnea Gastrointestinal: Gastrointestinal: Reports no additional gastrointestinal complaints, Denies abdominal pain, Denies melena, Denies hematochezia, Denies change in bowel habits and Denies change in stool character Genitourinary: Genitourinary: Denies hematuria, Denies urinary frequency, Denies dysuria, Denies urinary incontinence, Denies urinary hesitancy and Denies urinary urgency Musculoskeletal: Musculoskeletal: Reports no additional musculoskeletal complaints, Denies numbness and Denies tingling Neurologic: Denies loss of vision, Denies numbness and Denies tingling Psychiatric: Psychiatric: Reports no additional psychiatric complaints Endocrine: Endocrine: Reports no additional endocrine complaints Hematologic/Lymphatic: Hematologic/Lymphatic: Reports no additional hematologic/lymphatic complaints Allergic/Immunologic: Allergic/Immunologic: Reports no additional allergic/immunologic complaints [facility] Past Medical History Attestation statement: The following information was validated with the patient. Source: old records reviewed and nursing notes reviewed Medical History Cataracts, bilateral COVID-19 vaccine series completed Lichen sclerosus Arthritis Back pain Surgical History Hx of unilateral oophorectomy History of tonsillectomy and adenoidectomy Social History Social History Are you a primary floor care technician to a significant other at home: No Do you presently have visiting nurse or other home services: No Patient Tobacco Use Status: Never used Tobacco Second Hand Smoke Exposure: No Advance Directives: No Advance Directives Information Provided: Yes Physical Exam ED Vital Signs: Vital Signs - 24 hr 09/14/23 09:45 Temperature 98.0 F Pulse Rate 77 Respiratory Rate 18 Blood Pressure 146/64 H Pulse Oximetry 96 Oxygen Delivery Method Room Air BMI result Body Mass Index 30.9 Const General: cooperative, no acute distress, alert and awake Nutritional Appearance: well nourished Orientation/consciousness: patient oriented x3 Limitations: no limitations HENMT Head: Yes normal to inspection and Yes atraumatic Ears: hearing grossly normal bilaterally and external ears normal General nose exam: Normal external nose present, no nasal discharge noted and no epistaxis Face and sinus: Yes normal facial exam, No abrasion and No laceration Mouth: Normal oral and palatal mucosa present, no drooling and no muffled voice Eyes General: appearance normal, both eyes and all related structures Periorbital: periorbital findings normal Eyelids: Yes eyelids normal Conjunctivae: conjunctivae normal Pupils: Equal, round and reactive pupils present EOM: EOMs intact bilaterally Neck Neck: Yes normal visual inspection, Yes full ROM and Yes no lymphadenopathy Chest Chest palpation & inspection: normal inspection of the chest Resp Effort & Inspection: normal respiratory effort and able to speak in complete sentences Auscultation: clear to auscultation bilaterally Cardio Rate: regular rate Rhythm: regular rhythm GI Inspection: Yes normal to inspection Neuro General: patient oriented x3 and moves all extremities Cranial nerves: Yes Equal, round and reactive pupils present Cognition (Neuro): normal cognition Motor exam (neuro): 5/5 motor strength present throughout Sensory Exam: Normal double simultaneous stimulation for sensation Coordination: [id number] test normal Extrem General: Yes normal to inspection, Yes full ROM and Yes capillary refill normal Psych Appearance: grossly normal Mental Status: mental status grossly normal Affect: normal affect Attitude: cooperative Thought process: Normal thought process present Thought content: Normal thought content present Insight: Good insight present (Psych) Medical Decision Making Medical Decision Making MDM Narrative: Patient is an 82 year old assigned female at with a history of arthritis and cataracts presenting to the emergency department today with an intermittent fuzzy feeling in the head. Patient's physical exam was unremarkable. Patient's blood work was unremarkable. Patient's head CT showed no acute process. Patient's clinical presentation is most consistent with an occular migraine given the the patient's description of her complaint and no neurologic deficits or examination findings. I explained my physical exam findings as well as all test results to the patient. I answered all questions asked by the patient.. I stressed the importance of the patient taking her medication as prescribed. I stressed the importance of the patient following up with her primary care provider and a neurologist. I stressed the importance of the patient returning to the emergency department immediately if her symptoms were to worsen or if she were to develop any dizziness, shortness of breath, difficulty breathing, chest pain, blurry vision, loss of vision, nausea, vomiting, abdominal pain, fever, chills, back pain, or any other complaints. Patient verbalized agreement and understanding with this treatment plan and discharge. Differential Diagnosis Differential Diagnoses: The differential diagnosis associated with the presentation includes Ocular migraine Migraine BPPV Brain mass Brain bleed CVA Admission/Observation Consideration of admission/observation: Escalation of care including admission/observation considered Patient would have been admitted to the hospital had her work up had any findings where hospital admission was appropriate and her clinical presentation warranted hospital admission. Lab Data MDM Lab Attestation statement: I reviewed the patient's lab results. My interpretation of these studies and their corresponding values is that they are grossly normal. 09/14/23 10:21 09/14/23 10:21 Labs: Lab Results 09/14/23 Range/Units 10:21 WBC 3.3 L (4.8-10.8) X10*3/uL RBC 4.81 (4.20-5.50) X10*6/uL Hgb 14.1 (12.0-16.0) g/dl Hct 41.9 (37.0-47.0) % MCV 87.1 (80.0-98.0) fL MCH 29.3 (27.0-33.0) pg MCHC 33.7 (31.0-35.0) g/dl RDW 14.0 (11.0-16.0) % Plt Count 175 (160-400) X10*3/uL MPV 9.9 (9.4-12.3) fL Immature Gran % (Auto) 0.3 (0.0-0.4) % Neut % (Auto) 52.1 (45-73) % Lymph % (Auto) 29.8 (20-40) % Phelps % (Auto) 13.5 H (2-11) % Eos % (Auto) 3.4 (0-4) % Baso % (Auto) 0.9 (0-2) % Lymph # (Auto) 1.0 L (1.2-4.9) X10*3/uL Phelps # (Auto) 0.4 (0.1-1.2) X10*3/uL Eos # (Auto) 0.1 (0.0-0.4) X10*3/uL Baso # (Auto) 0.0 (0.0-0.2) X10*3/uL Abs Immat Gran (auto) 0.01 (0.00-0.03) X10*3/uL Absolute Neuts (auto) 1.7 L (2.0-8.3) x10*3/uL Absolute Nucleated RBC 0.000 (0.0-0.012) X10*3/uL Nucleated RBC % (auto) 0.0 (0.0-0.2) /100WBC Sodium 140 (135-145) mmol/L Potassium 3.8 (3.3-5.1) mmol/L Chloride 108 (96-108) mmol/L Carbon Dioxide 23 (22-29) mmol/L Anion Gap 13 (12-20) BUN 20 H (9-16) mg/dL Creatinine 0.70 (0.5-1.4) mg/dL Estim Creat Clear Calc 55.7 Estimated GFR > 60 Random Glucose 93 (60-115) mg/dL Calcium 9.1 (8.4-10.2) mg/dL Independent Interpretation I performed an independent interpretation of an: CT Scan Interpretation: My interpretation is in agreement with the radiologist's impression of this imaging study. - EXAMINATION: CT HEAD WITHOUT CONTRAST CLINICAL INFORMATION: Dizzy COMPARISON: 12/17/2020 TECHNIQUE: Contiguous axial imaging was performed from the skull base to vertex without intravenous administration of contrast. This CT examination was performed using dose optimization techniques as appropriate, variously including the following: *Automated exposure control *Adjustment of mA and/or kV according to patient size (this includes techniques or standardized protocols for targeted exams where dose is matched to indication/reason for exam; i.e. extremities or head) *Use of iterative reconstruction technique DLP: 558 mGy-cm FINDINGS: The ventricles and sulci are normal in size and configuration. No acute hemorrhage, mass effect or shift is evident. Holt-white differentiation is maintained. In the posterior fossa, the brainstem, cerebellum and fourth ventricle image normally. The orbits and calvarium are intact. The globes are aphakic. The paranasal sinuses and mastoid air cells are well pneumatized and clear. CT/CT head/brain wo IV con IMPRESSION: 1. Unremarkable noncontrast brain CT. No acute hemorrhage, mass effect or shift. Dictated By: Oni Lambert MD Signed By: Electronically signed by Oni Lambert MD 09/14/23 1100 Radiology Impression Discussion of test interpretation with radiology: I have reviewed the radiologist's reading. Discharge Plan Discharge Clinical Impression: Ocular migraine Patient Disposition: Home, Self-Care Instructions: Ocular Migraine (ED) Additional Instructions: Follow up with your primary care provider and a neurologist. Return to the emergency department immediately if your symptoms worsen or if you develop any dizziness, shortness of breath, difficulty breathing, chest pain, blurry vision, loss of vision, nausea, vomiting, abdominal pain, fever, chills, back pain, or any other complaints. Prescriptions: No Action meloxicam 7.5 mg tablet 1 tab PO DAILY PRN (Reason: Pain) clobetasol Referrals: [facility] [place] Neuro/Sleep [Provider Group] (Call to establish and follow up with a neurologist. ) Bertrand Khoury MD [Primary Care Provider] - Print Language: Tanzanian
[2023-09-14 10:24] LABS: MANUAL DIFF FLAG NO
[2023-09-14 10:25] LABS: Basophils Percent Auto 0.9 % (0-2); Eosinophils Absolute Auto 0.1 X10*3/uL (0.0-0.4); Eosinophils Percent Auto 3.4 % (0-4); Hematocrit 41.9 % (37.0-47.0); Hemoglobin 14.1 g/dl (12.0-16.0); Imm Gran Abs Auto 0.01 X10*3/uL (0.00-0.03); Imm Gran Pct Auto 0.3 % (0.0-0.4); Lymphocytes Percent Auto 29.8 % (20-40); Mean Corpuscular HGB Conc 33.7 g/dl (31.0-35.0); Mean Corpuscular Hemoglobin 29.3 pg (27.0-33.0); Mean Corpuscular Volume 87.1 fL (80.0-98.0); Mean Platelet Volume 9.9 fL (9.4-12.3); Monocytes Absolute Auto 0.4 X10*3/uL (0.1-1.2); Monocytes Percent Auto 13.5 % (2-11); Neutrophils Absolute Auto 1.7 x10*3/uL (2.0-8.3); Neutrophils Percent Auto 52.1 % (45-73); Platelet Count 175 X10*3/uL (160-400); Red Blood Count 4.81 X10*6/uL (4.20-5.50); White Blood Count 3.3 X10*3/uL (4.8-10.8)
[2023-09-14 10:41] LABS: Anion Gap 13 (12-20); Blood Urea Nitrogen 20 mg/dL (9-16); Calcium 9.1 mg/dL (8.4-10.2); Carbon Dioxide 23 mmol/L (22-29); Chloride 108 mmol/L (96-108); Creatinine Clr Calc Pharmacy 55.7; Estimated Glomerular Filt Rate > 60; Glucose Random 93 mg/dL (60-115); Potassium 3.8 mmol/L (3.3-5.1); Sodium 140 mmol/L (135-145)
[2023-09-14 11:34] VITALS: BP 136/71; PULSE 71; RESP 16; TEMP 36.8; O2SAT 97
== END 2023-09-14 11:56 | disposition home or self-care (01) ==
PROVIDERS: Emergency Provider Emergency Medicine Emergency Medical Services; PCP Internal Medicine
DX: G43.109 Migraine with aura, not intractable, without status migrainosus (principal)
CPT/HCPCS: 36415; 70450; 80048; 85025; 93005; 99284

== ENCOUNTER 2023-10-12 07:08 | Outpatient (REF) | payer MEDICARE, SELFPAY ==
[2023-10-12 07:25] LABS: MANUAL DIFF FLAG NO
[2023-10-12 07:42] LABS: Basophils Absolute Auto 0.1 X10*3/uL (0.0-0.2); Basophils Percent Auto 1.5 % (0-2); Eosinophils Absolute Auto 0.2 X10*3/uL (0.0-0.4); Eosinophils Percent Auto 3.5 % (0-4); Hematocrit 42.8 % (37.0-47.0); Imm Gran Abs Auto 0.01 X10*3/uL (0.00-0.03); Imm Gran Pct Auto 0.2 % (0.0-0.4); Lymphocytes Absolute Auto 1.5 X10*3/uL (1.2-4.9); Lymphocytes Percent Auto 27.9 % (20-40); Mean Corpuscular HGB Conc 32.7 g/dl (31.0-35.0); Mean Corpuscular Volume 88.6 fL (80.0-98.0); Mean Platelet Volume 10.5 fL (9.4-12.3); Monocytes Absolute Auto 0.6 X10*3/uL (0.1-1.2); Monocytes Percent Auto 10.8 % (2-11); Neutrophils Absolute Auto 2.9 x10*3/uL (2.0-8.3); Neutrophils Percent Auto 56.1 % (45-73); Platelet Count 204 X10*3/uL (160-400); Red Blood Count 4.83 X10*6/uL (4.20-5.50); Red Cell Distribution Width 13.8 % (11.0-16.0); White Blood Count 5.2 X10*3/uL (4.8-10.8)
[2023-10-12 08:07] LABS: C Reactive Protein 0.18 mg/dL (< or = 0.50)
[2023-10-12 08:22] LABS: Vitamin D 25-OH Total 40.5 ng/mL (>30)
[2023-10-12 08:35] LABS: Vitamin B12 297 pg/mL (200-900)
[2023-10-12 08:36] LABS: Erythrocyte Sedimentation Rate 4 MM/HR (0-20)
[2023-10-13 12:58] LABS: Lyme Abs Screen <0.90 index
== END 2023-10-12 07:09 | disposition home or self-care (01) ==
LOC: HO.LAB 07:08
PROVIDERS: PCP Internal Medicine; Visit Provider Internal Medicine
DX: R42 Dizziness and giddiness (principal); E53.8 Deficiency of other specified B group vitamins; M85.80 Other specified disorders of bone density and structure, unspecified site
CPT/HCPCS: 36415; 82306; 82550; 82607; 85025; 85652; 86140; 86617; 86618

== ENCOUNTER → 2023-10-24 13:18 | Outpatient (REF) | payer MEDICARE, SELFPAY ==
--- NOTE | 2023-10-24 13:22 | HM_ITS ---
Conclusion: 1. Patient was monitored for total period of 2 days 2. Baseline was normal sinus with average heart of 86 beats per minute 3. No significant pauses noted 4. Occasional PVCs noted with total burden of 1% 5. Patient reported 1 symptom of dizziness that correlated with sinus rhythm MTDD
== END ==
LOC: HO.CARD 13:18
PROVIDERS: Visit Provider Psychiatry & Neurology Neurology
DX: R42 Dizziness and giddiness (principal)
CPT/HCPCS: 93225

== ENCOUNTER → 2023-10-24 13:22 | Outpatient (BNV) | payer MEDICARE, SELFPAY | PROVIDERS: Visit Provider Internal Medicine Cardiovascular Disease | DX: I49.1 Atrial premature depolarization (principal) | CPT/HCPCS: 93227 ==

== ENCOUNTER 2024-02-27 14:09 | Outpatient (REF) | payer MEDICARE, SELFPAY ==
--- NOTE | ~2024-02-27 | MM_ITS ---
EXAMINATION: MM SCREENING DIGITAL BREAST TOMOSYNTHESIS, BILATERAL CLINICAL INFORMATION: Screening. Asymptomatic. COMPARISON: Mammography: This study is compared with prior exams dating back to 2019. TECHNIQUE: Digital breast tomosynthesis is performed in both the craniocaudal and mediolateral oblique views along with computer-aided detection (CAD). Synthesized 2D images are generated from the tomosynthesis. FINDINGS: The breasts are almost entirely fatty (ACR BI-RADS breast composition Category a). There are no significant masses, abnormal calcifications, or other abnormalities. There are unchanged, grouped, benign calcifications in the upper outer quadrant of the left breast. MM/MM tomosynthesis screening BI IMPRESSION: No mammographic evidence of malignancy. ASSESSMENT: BI-RADS BI-RADS 2 - Benign Findings RECOMMENDATION: Routine annual mammography screening. 1 year F/U This examination should not preclude the clinical evaluation of a suspicious palpable abnormality. This patient's information was entered into a reminder system with a target due date for their next mammogram.
== END 2024-02-27 14:10 | disposition home or self-care (01) ==
LOC: HO.MAMMO 14:09
PROVIDERS: PCP Internal Medicine; Visit Provider Internal Medicine
DX: Z12.31 Encounter for screening mammogram for malignant neoplasm of breast (principal)
CPT/HCPCS: 77063; 77067

== ENCOUNTER → 2024-02-27 14:30 | Outpatient (BNV) | payer MEDICARE, SELFPAY | PROVIDERS: PCP Internal Medicine; Visit Provider Radiology Diagnostic Radiology | DX: Z12.31 Encounter for screening mammogram for malignant neoplasm of breast (principal) | CPT/HCPCS: 77063; 77067 ==

== ENCOUNTER 2024-03-13 08:08 | Outpatient (REF) | payer MEDICARE, SELFPAY ==
--- NOTE | ~2024-03-13 | XR_ITS ---
EXAMINATION: XR CERVICAL SPINE XR LUMBAR SPINE CLINICAL INFORMATION: Neck pain, low back pain. Patient stated no injury. COMPARISON: Cervical spine 04/10/2023. TECHNIQUE: 4 views of the cervical spine. 3 views of lumbar spine. FINDINGS: CERVICAL SPINE: Bones are diffusely demineralized. Mild rightward curvature of the cervical spine. C7 is obscured by overlying bone and soft tissues. Redemonstration of multilevel degenerative changes with loss of disc space height and subchondral sclerosis most advanced at C4-C5, but also redemonstrated at C5-C6 and possibly C6-C7, partially obscured. Degenerative changes in the imaged upper thoracic spine. Degenerative changes between the anterior arch of C1 and the odontoid. LUMBAR SPINE: Dextroscoliosis of the lumbar spine. The bones are diffusely demineralized. Degenerative changes in the bilateral sacroiliac joints. Facet arthritis in the [id number] lumbar spine. Advanced degenerative changes in the imaged lower thoracic spine. Possible compression fracture of a lower thoracic vertebral body should be evaluated with dedicated views of the thoracic spine. Advanced multilevel degenerative changes in the lumbar spine with multilevel loss of disc space height and subchondral sclerosis most notable at L3-L4 and L5-S1. Grade 1 anterolisthesis of L4 and L5 with loss of disc space height. XR/XR cervical spine 3V IMPRESSION: 1. Multilevel degenerative disc disease in the cervical spine most notable at C4-C5. 2. Grade 1 anterolisthesis of L4 and L5 with loss of disc space height. Advanced multilevel degenerative disc disease in the lumbar spine most notable at L3-L4 and L5-S1. 3. Possible compression fracture of a lower thoracic vertebral body should be evaluated with dedicated views of the thoracic spine.
--- NOTE | ~2024-03-13 | XR_ITS ---
EXAMINATION: XR CERVICAL SPINE XR LUMBAR SPINE CLINICAL INFORMATION: Neck pain, low back pain. Patient stated no injury. COMPARISON: Cervical spine 04/10/2023. TECHNIQUE: 4 views of the cervical spine. 3 views of lumbar spine. FINDINGS: CERVICAL SPINE: Bones are diffusely demineralized. Mild rightward curvature of the cervical spine. C7 is obscured by overlying bone and soft tissues. Redemonstration of multilevel degenerative changes with loss of disc space height and subchondral sclerosis most advanced at C4-C5, but also redemonstrated at C5-C6 and possibly C6-C7, partially obscured. Degenerative changes in the imaged upper thoracic spine. Degenerative changes between the anterior arch of C1 and the odontoid. LUMBAR SPINE: Dextroscoliosis of the lumbar spine. The bones are diffusely demineralized. Degenerative changes in the bilateral sacroiliac joints. Facet arthritis in the [id number] lumbar spine. Advanced degenerative changes in the imaged lower thoracic spine. Possible compression fracture of a lower thoracic vertebral body should be evaluated with dedicated views of the thoracic spine. Advanced multilevel degenerative changes in the lumbar spine with multilevel loss of disc space height and subchondral sclerosis most notable at L3-L4 and L5-S1. Grade 1 anterolisthesis of L4 and L5 with loss of disc space height. XR/XR lumbar spine 2-3V IMPRESSION: 1. Multilevel degenerative disc disease in the cervical spine most notable at C4-C5. 2. Grade 1 anterolisthesis of L4 and L5 with loss of disc space height. Advanced multilevel degenerative disc disease in the lumbar spine most notable at L3-L4 and L5-S1. 3. Possible compression fracture of a lower thoracic vertebral body should be evaluated with dedicated views of the thoracic spine.
[2024-03-13 09:33] LABS: Anion Gap 11 (12-20); Blood Urea Nitrogen 24 mg/dL (9-16); Calcium 9.1 mg/dL (8.4-10.2); Carbon Dioxide 26 mmol/L (22-29); Chloride 110 mmol/L (96-108); Estimated Glomerular Filt Rate > 60; Glucose Random 96 mg/dL (60-115); Potassium 3.8 mmol/L (3.3-5.1); Sodium 143 mmol/L (135-145)
== END 2024-03-13 08:09 | disposition home or self-care (01) ==
LOC: HO.XRAY 08:08
PROVIDERS: PCP Internal Medicine; Visit Provider Internal Medicine
DX: M54.2 Cervicalgia (principal); M54.50 Low back pain, unspecified; M81.0 Age-related osteoporosis without current pathological fracture
CPT/HCPCS: 36415; 72040; 72100; 80048

== ENCOUNTER 2024-04-13 09:02 | Outpatient (REF) | payer MEDICARE, SELFPAY ==
--- NOTE | ~2024-04-13 | XR_ITS ---
EXAMINATION: XR THORACIC SPINE CLINICAL INFORMATION: Back pain COMPARISON: None available. TECHNIQUE: 03/13/2024 cervical spine and lumbar spine x-rays FINDINGS: The bones are diffusely demineralized. S-shaped thoracolumbar scoliosis. Advanced multilevel degenerative changes in the thoracic spine. Several adjacent moderate anterior wedge compression deformities of T6, T7, T8 and T9 vertebral bodies as well as superior anterior endplate of T10 vertebral body of indeterminate age and etiology. XR/XR thoracic spine 3V IMPRESSION: 1. Advanced multilevel degenerative changes in the thoracic spine. 2. Several adjacent moderate anterior wedge compression deformities of T6, T7, T8 and T9 vertebral bodies as well as superior anterior endplate of T10 vertebral body of indeterminate age and etiology.
== END 2024-04-13 09:03 | disposition home or self-care (01) ==
LOC: HO.LAB 09:02
PROVIDERS: PCP Internal Medicine; Visit Provider Internal Medicine
DX: M54.6 Pain in thoracic spine (principal); M48.54XD Collapsed vertebra, not elsewhere classified, thoracic region, subsequent encounter for fracture with routine healing
CPT/HCPCS: 72072

== ENCOUNTER 2025-03-24 16:18 | Outpatient (REF) | payer MEDICARE, SELFPAY | END 2025-03-24 16:19 | disposition home or self-care (01) | LOC: HO.MAMMO 16:18 | PROVIDERS: Visit Provider Internal Medicine | DX: Z12.31 Encounter for screening mammogram for malignant neoplasm of breast (principal) | CPT/HCPCS: 77063; 77067 ==

== ENCOUNTER → 2025-03-24 16:30 | Outpatient (BNV) | payer MEDICARE, SELFPAY | PROVIDERS: Visit Provider Internal Medicine | DX: Z12.31 Encounter for screening mammogram for malignant neoplasm of breast (principal) | CPT/HCPCS: 77063; 77067 ==

== ENCOUNTER 2025-05-23 13:53 | Outpatient (AMB) | payer MEDICARE, SELFPAY ==
--- NOTE | 2025-05-23 14:15 | A.OFFPC_ITS ---
Vital Signs 05/23/25 14:22 Height 4 ft 11 in Weight 78.925 kg BMI 35.1 BP 134/64 Respiration 16 Pulse 88 Pulse Source Pulse Oximeter Temp 97.1 F Temp Source Temporal Artery Scan Pulse Oximetry (%) 98 Oxygen Delivery Method Room Air Intake Visit Reasons: routine Schedule Analyst Required: No Accompanied by: Self / Same As Patient Allergies acetaminophen (From Excedrin Extra Strength) Allergy (Verified 05/23/25 14:18) cant remember Rxn so long ago aspirin (From Excedrin Extra Strength) Allergy (Verified 05/23/25 14:18) cant remember Rxn so long ago caffeine (From Excedrin Extra Strength) Allergy (Verified 05/23/25 14:18) cant remember Rxn so long ago levofloxacin (From Levaquin) Allergy (Verified 05/23/25 14:18) Swelling of ears, Burning of Eyes sulfamethoxazole (From Bactrim) Allergy (Verified 05/23/25 14:18) tearing and burning of eyes trimethoprim (From Bactrim) Allergy (Verified 05/23/25 14:18) tearing and burning of eyes Medication List - Last Reconciled 05/23/25 by MEAGAN Dawson cholecalciferol (vitamin D3) 50 mcg PO DAILY clobetasol 0.05% 0.5 grams topical BEDTIME fluticasone propionate 50 mcg/actuation (Allergy Relief (fluticasone)) 1 spray intranasal Q12H meloxicam 1 tab PO DAILY PRN turmeric mg PO [Vitamin B12 PO] HPI HPI Comments History of Present Illness Details 84-year-old female with history of osteo porosis, bilateral cataracts, lichen sclerosis, chronic low back pain, chronic neck pain, osteoarthritis of the shoulders presents to the office today to establish care and for management of chronic conditions. Osteoporosis-no longer taking Fosamax. Reports that she was started on this about 3 years ago but discontinued on her own 2 years ago. Due for DEXA scan Chronic low back/thoracic/neck pain-XR of the cervical spine shows multilevel degenerative disc disease most notable at C4-C5 with grade 1 anterolisthesis of L4-L5 and loss of disc space height as well as multilevel degenerative disc disease in lumbar spine most notable at L3-L4 and L5-S1. There is also a possible compression fracture of a lower thoracic vertebral body. Taking meloxicam 7.5-15 mg daily. Requesting referral to physical therapy. No weakness, paresthesias, radiculopathy Bilateral shoulder pain-chronic, osteoarthritis. Taking meloxicam COncerns: as above Health Maintenance: Last mammogram 02/2025 with 1 year follow-up advised No longer undergoing colonoscopy Last DEXA scan 2021 ROS: General: No fevers, malaise, unintentional weight loss Cardiovascular: No chest pain, palpitations, or leg edema Respiratory: No shortness of breath, wheezing, cough GI: No abdominal pain, nausea, vomiting, diarrhea, constipation, melena, hematochezia : No dysuria, hematuria, increased urinary frequency, decreased urinary output MSK: See HPI Neuro: No headaches, weakness, paresthesias Skin: No rashes or lesions EXAM: Constitutional - Awake and Alert, No apparent distress Eyes - PERRL Cardiovascular - S1S2, RRR, No edema Respiratory - Normal lung expansion, Normal respiratory effort, No respiratory distress, CTA bilaterally Extremities - no calf tenderness bilaterally, no swelling Skin - Warm/Dry Neurological - Alert & oriented x3 Psychological - Appropriate affect [facility] Medical History Cataracts, bilateral COVID-19 vaccine series completed Lichen sclerosus Arthritis Back pain Surgical History Hx of unilateral oophorectomy History of tonsillectomy and adenoidectomy Social History Are you a primary care manager to a significant other at home: No Do you presently have visiting nurse or other home services: No Patient Tobacco Use Status: Never used Tobacco Second Hand Smoke Exposure: No Questionnaire PHQ-9 Over the last 2 weeks, how often have you been bothered by any of the following problems? 1. Little interest or pleasure in doing things: not at all 2. Feeling down, depressed, or hopeless: not at all 3. Trouble falling or staying asleep, or sleeping too much: several days 4. Feeling tired or having little energy: several days 5. Poor appetite or overeating: several days 6. Feeling bad about yourself - or that you are a failure or have let yourself or your family down: not at all 7. Trouble concentrating on things, such as reading the newspaper or watching television: not at all 8. Moving or speaking so slowly that other people could have noticed. Or the opposite - being so fidgety or restless that you have been moving around a lot more than usual: not at all 9. Thoughts that you would be better off or of hurting yourself in some way: not at all Total score: 3 Source: Developed by Drs. Jeronimo Cardenas, Yessi Connelly, Anatoliy Hale and colleagues, with an educational darline from [employer]. Thrive Questionnaire Date Thrive assessed: 05/23/25 I am a: Patient What is your living situation today?: I have a steady place to live Within the past 12 months, did the food you bought not last and you didn't have the money to get more?: Never true Within the past 12 months, did you worry whether your food would run out before you got money to buy more?: Never true Do you have trouble paying for medicines?: No Do you have trouble getting transportation to medical appointments?: No Do you have trouble paying your heating and electricity bill?: No Do you have trouble taking care of your child, family member or friend?: No Do you have trouble with day-to-day activities such as bathing, preparing meals, shopping, managing finances, etc.?: No Are you currently unemployed and looking for a job?: No Are you interested in more education?: No THRIVE Score: 0 DAMIAN-7 AMB Questionnaire DAMIAN-7 Date DAMIAN - 7 assessed: 05/23/25 Feeling nervous, anxious, or on edge: 0 = Not at all Not being able to stop or control worryin = Not at all Worrying too much about different things: 0 = Not at all Trouble relaxin = Not at all Being so restless that it is hard to sit still: 0 = Not at all Becoming easily annoyed or irritable: 0 = Not at all Feeling afraid as if something awful might happen: 0 = Not at all Total DAMIAN-7 score (0-4 normal; 5-9 mild; 10-14 moderate; 15-21 severe): 0 Source: Developed by Drs. Jeronimo Cardenas, Anatoliy Elizabeth and colleagues, with an educational darline from [employer]. Physical exam (Primary Care) Vital Signs: Last Vital Signs Temp 97.1 F 05/23/25 14:22 Pulse 88 05/23/25 14:22 Resp 16 05/23/25 14:22 BP 134/64 05/23/25 14:22 Pulse Ox 98 05/23/25 14:22 Oxygen Delivery Method Room Air 05/23/25 14:22 BMI result Body Mass Index 35.1 Tobacco/Smoking Status: Tobacco use Status Patient Tobacco Use Status Never used Tobacco 05/23/25 14:25 PHQ-9: PHQ-9 Score PHQ-9: Total score 3 05/23/25 14:29 Thrive Assessment: Date of Thrive Assessment Date Thrive assessed 05/23/25 05/23/25 14:29 Coding Level of Care Code New Pt Level 4 (91394) Complex EM visit Add On G2211 Diagnoses Osteoporosis M81.0 Osteoarthritis of both shoulders M19.011; M19.012 Chronic low back pain M54.50; G89.29 Chronic neck pain M54.2; G89.29 Assessment & Plan Assessment & Plan (1) Osteoporosis: Code(s): M81.0 - Age-related osteoporosis without current pathological fracture Category: Medical Plan: DEXA scan ordered. Continue vitamin-D. Recommend weight-bearing exercise (2) Osteoarthritis of both shoulders: Code(s): M19.011 - Primary osteoarthritis, right shoulder; M19.012 - Primary ost eoarthritis, left shoulder Category: Medical Plan: Continue meloxicam. Referred for physical therapy (3) Chronic low back pain: Code(s): M54.50 - Low back pain, unspecified; G89.29 - Other chronic pain Category: Medical Plan: Continue meloxicam. Referred for physical therapy (4) Chronic neck pain: Code(s): M54.2 - Cervicalgia; G89.29 - Other chronic pain Category: Medical Plan: Continue meloxicam. Referred for physical therapy Plan Follow-up in the office in 6 months for annual physical exam. Labs to be completed following visit and prior to next visit Orders: Orders Complete Blood Count Auto Diff Today M81.0 - Age-related osteoporosis without current pathological fracture, Z13.220 - Encounter for screening for lipoid disorders PT Evaluation and Treatment Today G89.29 - Other chronic pain, M19.011 - Primary osteoarthritis, right shoulder, M19.012 - Primary osteoarthritis, left shoulder, M54.2 - Cervicalgia, M54.50 - Low back pain, unspecified Hemoglobin A1c 6 Months Z00.00 - Encounter for general adult medical examination without abnormal findings Lipid Panel 6 Months Z00.00 - Encounter for general adult medical examination without abnormal findings Basic Metabolic Panel Today M81.0 - Age-related osteoporosis without current pathological fracture, Z13.220 - Encounter for screening for lipoid disorders Lipid Panel Today M81.0 - Age-related osteoporosis without current pathological fracture, Z13.220 - Encounter for screening for lipoid disorders Liver Panel Today M81.0 - Age-related osteoporosis without current pathological fracture, Z13.220 - Encounter for screening for lipoid disorders Vitamin D 25-OH Total Today M81.0 - Age-related osteoporosis without current pathological fracture, Z13.220 - Encounter for screening for lipoid disorders Basic Metabolic Panel 6 Months Z00.00 - Encounter for general adult medical examination without abnormal findings Complete Blood Count Auto Diff 6 Months Z00.00 - Encounter for general adult medical examination without abnormal findings Liver Panel 6 Months Z00.00 - Encounter for general adult medical examination without abnormal findings Medications: New fluticasone propionate 50 mcg/actuation (Allergy Relief (fluticasone)) administer into each nostril 1 spray intranasal Q12H 16 grams 5RF Changed From meloxicam 1 tab PO DAILY PRN Pain To meloxicam 7.5 - 15 mg (1 - 2 x 7.5 mg) PO DAILY PRN 180 tabs 1RF Pain Discontinued alendronate Discontinued Reason: Patient Refused 35 mg PO QWEEK 14 tabs 0RF
[2025-05-23 14:22] VITALS: BP 134/64; PULSE 88; RESP 16; TEMP 36.2; O2SAT 98; BMI 35.1
== END 2025-05-23 14:52 | disposition home or self-care (01) ==
LOC: HO.HMCHD 13:53
PROVIDERS: PCP Internal Medicine; Visit Provider Physician Assistant
DX: M81.0 Age-related osteoporosis without current pathological fracture (principal); M19.011 Primary osteoarthritis, right shoulder; M19.012 Primary osteoarthritis, left shoulder; M54.50 Low back pain, unspecified; G89.29 Other chronic pain; M54.2 Cervicalgia

== ENCOUNTER → 2025-05-23 13:53 | Outpatient (BNVA) | payer MEDICARE, SELFPAY | PROVIDERS: PCP Internal Medicine; Visit Provider Physician Assistant | DX: Z76.89 Persons encountering health services in other specified circumstances (principal); M81.0 Age-related osteoporosis without current pathological fracture; M19.011 Primary osteoarthritis, right shoulder; M19.012 Primary osteoarthritis, left shoulder; G89.29 Other chronic pain; M54.2 Cervicalgia; M54.50 Low back pain, unspecified; Z13.30 Encounter for screening examination for mental health and behavioral disorders, unspecified | CPT/HCPCS: 96127; 99202 ==

== ENCOUNTER 2025-07-31 14:30 | Emergency (ER) | payer MEDICARE, SELFPAY ==
--- NOTE | ~2025-07-31 | CT_ITS ---
CLINICAL HISTORY: left flank pain Exam: CT Abdomen and Pelvis Without IV Contrast Comparison: Findings: The liver density is homogeneous No biliary abnormalities The spleen is normal in size No pancreatic ductal dilatation There is left kidney mild hydronephrosis with parapelvic inflammatory fat density and proximal left ureteritis. A 1 mm nonobstructing calculus is present in a middle zone calyx of the right kidney There is mild fluid-filled dilatation of small bowel in the left abdomen consistent with localized ileus. No secondary signs of acute appendicitis No free fluid/free air The abdominal aorta caliber is normal Bladder outline is smooth. No bladder calculus There is moderate scoliosis with secondary degenerative disc disease. Impression : Left kidney hydronephrosis and proximal ureteritis without signs of obstructing radiopaque ureteral calculus. Numerous paracervical calcified phleboliths are present without confirmation of the distal ureteral calculus. It is possible that a counter calculus has just passed. This document has been electronically signed by: Dennis Bill MD on 07/31/2025 18:22:09
[2025-07-31 14:37] VITALS: BP 144/88; BP 168/56; PULSE 79; PULSE 83; RESP 20; TEMP 36.6; O2SAT 98; BMI 36.8
--- NOTE | 2025-07-31 14:42 | ECG_ITS ---
Test Reason : ABD PAIN Blood Pressure : */* mmHG Vent. Rate : 77 BPM Atrial Rate : 77 BPM P-R Int : 146 ms QRS Dur : 80 ms QT Int : 398 ms P-R-T Axes : 3 4 15 degrees QTcB Int : 450 ms Normal sinus rhythm Normal ECG When compared with ECG of 14-Sep-2023 09:41, No significant change was found Referred By: Generic ED Physician Electronically Signed By: Ovidio Duron
[2025-07-31 14:47] LABS: MANUAL DIFF FLAG NO
[2025-07-31 14:50] LABS: Hematocrit 44.9 % (37.0-47.0); Hemoglobin 15.7 g/dl (12.0-16.0); Imm Gran Abs Auto 0.02 X10*3/uL (0.00-0.03); Imm Gran Pct Auto 0.3 % (0.0-0.4); Lymphocytes Absolute Auto 2.0 X10*3/uL (1.2-4.9); Mean Corpuscular HGB Conc 35.0 g/dl (31.0-35.0); Mean Corpuscular Hemoglobin 30.2 pg (27.0-33.0); Mean Corpuscular Volume 86.3 fL (80.0-98.0); NRBC Abs Auto 0.000 X10*3/uL (0.0-0.012); NRBC Pct Auto 0.0 /100WBC (0.0-0.2); Platelet Count 216 X10*3/uL (160-400); Red Blood Count 5.20 X10*6/uL (4.20-5.50); White Blood Count 7.5 X10*3/uL (4.8-10.8)
[2025-07-31 15:24] LABS: Alanine Aminotransferase 18 U/L (0-31); Albumin Level 4.3 g/dL (3.5-5.0); Alkaline Phosphatase 88 U/L (39-117); Anion Gap 17 (12-20); Aspartate Amino Transferase 25 U/L (5-31); Blood Urea Nitrogen 32 mg/dL (9-16); Calcium 9.5 mg/dL (8.4-10.2); Carbon Dioxide 20 mmol/L (22-29); Chloride 109 mmol/L (96-108); Creatinine Clr Calc Pharmacy 38.6; Estimated Glomerular Filt Rate 57; Potassium 4.0 mmol/L (3.3-5.1); Sodium 142 mmol/L (135-145); Total Protein 7.0 g/dL (6.5-8.0)
[2025-07-31 16:08] VITALS: BP 132/59; PULSE 86; RESP 15; TEMP 36.7; O2SAT 95
--- NOTE | 2025-07-31 16:55 | ED.GENADULT ---
HPI - General Adult General Chief complaint: Abdominal Pain Stated complaint: ABD PAIN X 2 HOURS VOMITING Time Seen by Provider: 07/31/25 16:16 Source: patient, RN notes reviewed and old records reviewed Mode of arrival: EMS Limitations: no limitations History of Present Illness ED Provider: Jude HPI narrative: 84-year-old female with past medical history significant for arthritis, cataracts presents for evaluation of abdominal pain. Patient reports a sudden onset of left lower abdominal pain that was sharp and radiating to her back The pain at worst was a 9/10. Currently her pain is dull, 1/10. She has associated nausea and vomiting. She reports frequent urination at baseline, she has not noticed any blood in the urine. Denies any diarrhea or constipation. Denies any fevers or chills pain She has no chest pain, shortness of breath or palpitations denies any history of kidney stones Related Data Home Medications ?Medication ?Instructions ?Recorded ?Confirmed Vitamin B12 PO 05/23/25 05/23/25 cholecalciferol (vitamin D3) 50 50 mcg PO DAILY 05/23/25 05/23/25 mcg (2,000 unit) capsule clobetasol 0.05 % topical ointment 0.5 g topical BEDTIME 05/23/25 05/23/25 turmeric 400 mg capsule mg PO 05/23/25 05/23/25 Previous Rx's ?Medication ?Instructions ?Recorded fluticasone propionate 50 1 spray intranasal Q12H #16 grams 05/23/25 mcg/actuation nasal spray,suspension (Allergy Relief (fluticasone)) meloxicam 7.5 mg tablet 7.5 - 15 mg (1 - 2 x 7.5 mg) PO 05/23/25 DAILY PRN Pain #180 tabs ondansetron 4 mg disintegrating 4 mg PO Q8H PRN nausea and 07/31/25 tablet vomiting #20 tabs oxycodone 5 mg tablet 5 mg PO Q8H PRN severe pain (scale 07/31/25 score 7-10) #6 tabs tamsulosin 0.4 mg capsule (Flomax) 0.4 mg PO DAILY #5 caps 07/31/25 Allergies Allergy/AdvReac Type Severity Reaction Status Date / Time acetaminophen (From Excedrin Allergy cant Verified 07/31/25 14:41 Extra Strength) remember Rxn so long ago aspirin (From Excedrin Extra Allergy cant Verified 07/31/25 14:41 Strength) remember Rxn so long ago caffeine (From Excedrin Allergy cant Verified 07/31/25 14:41 Extra Strength) remember Rxn so long ago levofloxacin (From Levaquin) Allergy Swelling Verified 07/31/25 14:41 of ears, Burning of Eyes sulfamethoxazole (From Allergy tearing Verified 07/31/25 14:41 Bactrim) and burning of eyes trimethoprim (From Bactrim) Allergy tearing Verified 07/31/25 14:41 and burning of eyes Review of Systems Constitutional: Constitutional: Denies body ache(s), Denies chills and Denies fever(s) Eyes: Eyes: Denies blurry vision ENT: Denies vertigo and Denies dizziness Cardiovascular: Cardiovascular: Denies chest pain and Denies dyspnea on exertion Respiratory: Respiratory: Denies cough and Denies dyspnea on exertion Gastrointestinal: Gastrointestinal: Reports abdominal pain, Denies constipation, Denies diarrhea, Denies loose stools, Reports nausea and Reports vomiting Musculoskeletal: Musculoskeletal: Reports back pain Integumentary/Breasts: Skin/Breast: Denies rash Neurologic: Denies vertigo and Denies dizziness PMF Past Medical History Medical History (Updated 07/31/25 @ 17:06 by Dwayne Roque) Osteoporosis Cataracts, bilateral COVID-19 vaccine series completed Lichen sclerosus Arthritis Back pain Surgical History Hx of unilateral oophorectomy History of tonsillectomy and adenoidectomy Social History Social History Are you a primary patient care coordinator to a significant other at home: No Do you presently have visiting nurse or other home services: No Patient Tobacco Use Status: Never used Tobacco Smoked in Last 30 Days: No Second Hand Smoke Exposure: No Use of substances other than those prescribed or required for medical reasons: No Advance Directives: No Advance Directives Information Provided: Yes Do you have a plan to hurt others: No Plan Physical Exam ED Vital Signs: Vital Signs - 24 hr 07/31/25 14:37 07/31/25 16:08 07/31/25 18:30 Temperature 97.9 F 98.1 F 98.2 F Pulse Rate 83 86 83 Respiratory Rate 20 15 16 Blood Pressure 168/56 H 132/59 L 155/76 H Pulse Oximetry 98 95 98 Oxygen Delivery Method Room Air Room Air 07/31/25 18:42 07/31/25 19:29 Temperature Pulse Rate 91 Respiratory Rate 14 16 Blood Pressure 115/68 Pulse Oximetry 98 Oxygen Delivery Method Room Air BMI result Body Mass Index 36.8 Const General: healthy appearing, comfortable, no acute distress, alert and awake Nutritional Appearance: well nourished Orientation/consciousness: patient oriented x3 HENMT Head: Yes normocephalic and Yes atraumatic Eyes Eyelids: Yes eyelids normal Conjunctivae: conjunctivae normal Sclerae: sclerae normal Corneas: corneas normal Pupils: Equal, round and reactive pupils present EOM: EOMs intact bilaterally Neck Neck: Yes full ROM Resp Effort & Inspection: normal respiratory effort, able to speak in complete sentences and not labored Cardio Rate: regular rate Rhythm: regular rhythm GI Inspection: No distended Palpation (GI): Soft to palpation, not firm, nontender, no guarding and not rigid General: Yes no CVA tenderness Back/Spine/Pelvis Back: no CVA tenderness Skin General skin exam: elasticity normal Neuro General: patient oriented x3 Cranial nerves: Yes Equal, round and reactive pupils present and Yes Bilaterally intact EOM present Cognition (Neuro): normal cognition Extrem Other: Moving all extremities well without any obvious deformities Course Reevaluation(s) Reevaluation #1: patient's CT scan shows left-sided hydronephrosis with ureteritis, there was no clear obstructing stone visualized. It is likely the patient passed the stone as her pain has improved and there was blood in her urine. No signs of infection. We will discharge the patient with Flomax, Zofran and a few oxycodone tablets Time: 20:14 Medications Administered Discontinued Medications Generic Name Dose Route Start Last Admin Trade Name Freq PRN Reason Stop Dose Admin Morphine Sulfate 4 mg 07/31/25 18:29 07/31/25 18:42 Morphine Sulfate 4 Mg/Ml Cartridge IVPUSH 07/31/25 18:30 4 mg ONCE ONE Administration Protocol Ondansetron HCl 4 mg 07/31/25 18:29 07/31/25 18:42 Ondansetron Hcl 4 Mg/2 Ml Vial IVPUSH 07/31/25 18:30 4 mg ONCE ONE Administration Medical Decision Making Medical Decision Making [facility] Narrative: 84-year-old female presents for evaluation of left lower abdominal pain that radiates to her back. Her pain has been waxing and waning, based on history exam this is likely to be obstructive uropathy the patient denies any history of this. She does report a similar episode about 2 weeks ago which self-resolved. Often differential would be constipation, diverticulitis, colitis. She reports she had a left oophorectomy over 50 years ago due to ovarian cyst. she denies any constipation but is still having bowel movements, less likely to be bowel obstruction. Labs are relatively reassuring, as the patient has no leukocytosis, anemia, no left shift. her BUN is slightly elevated at 32 which could be due to an obstructive uropathy, creatinine is 0.94. Her CO2 is low which I suspect is due to tachypnea for when she was having a significant amount of pain prior to arrival. We will obtain a urinalysis and get a CT scan of the abdomen pelvis to evaluate for obstructive uropathy. This is less likely cardiac given how low her pain is in her abdomen Differential Diagnosis Differential Diagnoses: The differential diagnosis associated with the presentation includes obstructive uropathy Colitis Diverticulitis UTI Pyelonephritis Constipation Bowel obstruction Lab Data [facility] Lab Attestation statement: I reviewed the patient's lab results. as above 07/31/25 14:43 07/31/25 14:43 Labs: Lab Results 07/31/25 07/31/25 Range/Units 14:43 17:56 WBC 7.5 (4.8-10.8) X10*3/uL RBC 5.20 (4.20-5.50) X10*6/uL Hgb 15.7 (12.0-16.0) g/dl Hct 44.9 (37.0-47.0) % MCV 86.3 (80.0-98.0) fL MCH 30.2 (27.0-33.0) pg MCHC 35.0 (31.0-35.0) g/dl RDW 13.2 (11.0-16.0) % Plt Count 216 (160-400) X10*3/uL MPV 10.1 (9.4-12.3) fL Immature Gran % (Auto) 0.3 (0.0-0.4) % Neut % (Auto) 64.2 (45-73) % Lymph % (Auto) 26.9 (20-40) % Christian % (Auto) 6.4 (2-11) % Eos % (Auto) 1.1 (0-4) % Baso % (Auto) 1.1 (0-2) % Lymph # (Auto) 2.0 (1.2-4.9) X10*3/uL Christian # (Auto) 0.5 (0.1-1.2) X10*3/uL Eos # (Auto) 0.1 (0.0-0.4) X10*3/uL Baso # (Auto) 0.1 (0.0-0.2) X10*3/uL Abs Immat Gran (auto) 0.02 (0.00-0.03) X10*3/uL Absolute Neuts (auto) 4.8 (2.0-8.3) x10*3/uL Absolute Nucleated RBC 0.000 (0.0-0.012) X10*3/uL Nucleated RBC % (auto) 0.0 (0.0-0.2) /100WBC Sodium 142 (135-145) mmol/L Potassium 4.0 (3.3-5.1) mmol/L Chloride 109 H (96-108) mmol/L Carbon Dioxide 20 L (22-29) mmol/L Anion Gap 17 (12-20) BUN 32 H (9-16) mg/dL Creatinine 0.94 (0.5-1.4) mg/dL Estim Creat Clear Calc 38.6 Estimated GFR 57 Random Glucose 136 H (60-115) mg/dL Calcium 9.5 (8.4-10.2) mg/dL Total Bilirubin 0.6 (0.0-1.0) mg/dL AST 25 (5-31) U/L ALT 18 (0-31) U/L Alkaline Phosphatase 88 (39-117) U/L Total Protein 7.0 (6.5-8.0) g/dL Albumin 4.3 (3.5-5.0) g/dL Urine Color Yellow Urine Appearance Clear Urine pH 5.0 (5.0-9.0) Ur Specific [place] 1.025 (1.005-1.025) Urine Protein Negative (Neg-Trace) mg/dL Urine Glucose (UA) Negative (Negative) mg/dL Urine Ketones 40 (Negative) mg/dL Urine Blood Small (1+) H (Negative) Urine Nitrite Negative (Negative) Ur Leukocyte Esterase Trace H (Negative) Urine RBC 6-10 H (0-2) /HPF Urine WBC 0-5 (0-5) /HPF Ur Squamous Epith Cells 0-2 (0-2) /HPF Calcium Oxalate Crystal Present Urine Bacteria None Seen (None Seen) Hyaline Casts 3-5 (0-2) /LPF Radiology Impression Discussion of test interpretation with radiology: I have reviewed the radiologist's reading. Radiologist Impression: Impression : Left kidney hydronephrosis and proximal ureteritis without signs of obstructing radiopaque ureteral calculus. Numerous paracervical calcified phleboliths are present without confirmation of the distal ureteral calculus. It is possible that a counter calculus has just passed. This document has been electronically signed by: Dennis Bill MD on 07/31/2025 18:22:09 Discharge Plan Discharge Clinical Impression: Acute left flank pain Patient Disposition: Home, Self-Care Instructions: Kidney Stones (ED) Additional Instructions: your CT scan showed some swelling of your left kidney and ureter that is suggestive that you recently passed a kidney stone. There was blood in your urine which also suggests a recently passed kidney stone. Take Flomax daily for the next 5 days. Take Zofran as needed for nausea and vomiting. You may take ibuprofen for pain. I did prescribe a short course of oxycodone for severe breakthrough pain. You do not have to take this if you do not have any more pain Prescriptions: New tamsulosin [Flomax] 0.4 mg capsule 0.4 mg PO DAILY Qty: 5 0RF ondansetron 4 mg tablet,disintegrating 4 mg PO Q8H PRN (Reason: nausea and vomiting) Qty: 20 0RF oxycodone 5 mg tablet 5 mg PO Q8H PRN (Reason: severe pain (scale score 7-10)) Qty: 6 0RF Rx Instructions: Partial Fill upon patient request. No Action clobetasol 0.05 % ointment 0.5 g topical BEDTIME cholecalciferol (vitamin D3) 50 mcg (2,000 unit) capsule 50 mcg PO DAILY turmeric 400 mg capsule PO Vitamin B12 PO fluticasone propionate [Allergy Relief (fluticasone)] 50 mcg/actuation spray,suspension 1 spray intranasal Q12H Qty: 16 5RF Rx Instructions: administer into each nostril meloxicam 7.5 mg tablet 7.5 - 15 mg PO DAILY PRN (Reason: Pain) Qty: 180 1RF Print Language: Beninese
[2025-07-31 18:16] LABS: Appearance Urine Clear; Glucose Urine UA Negative (Negative); PH 5.0 (5.0-9.0); Specific Gravity - Urine 1.025 (1.005-1.025); UMIC TRIGGER UACC YES
[2025-07-31 18:30] VITALS: BP 155/76; PULSE 83; RESP 16; TEMP 36.8; O2SAT 98
[2025-07-31 18:42] VITALS: RESP 14
[2025-07-31 19:29] VITALS: BP 115/68; PULSE 91; RESP 16; O2SAT 98
[2025-07-31 20:50] VITALS: BP 115/68; PULSE 91; RESP 16; TEMP 36.7; O2SAT 98
== END 2025-07-31 21:54 | disposition home or self-care (01) ==
PROVIDERS: Physician Assistant; Emergency Provider Emergency Medicine
DX: R10.9 Unspecified abdominal pain (principal); N13.30 Unspecified hydronephrosis; N28.89 Other specified disorders of kidney and ureter; M54.9 Dorsalgia, unspecified; Z79.899 Other long term (current) drug therapy
CPT/HCPCS: 36415; 74176; 80053; 81001; 85025; 93005; 96374; 96375; 99284; 99285; J2270; J2405

== ENCOUNTER → 2025-07-31 14:42 | Outpatient (BNV) | payer MEDICARE, SELFPAY | PROVIDERS: Emergency Provider Emergency Medicine; Visit Provider Internal Medicine Cardiovascular Disease | DX: R10.32 Left lower quadrant pain (principal) | CPT/HCPCS: 93010 ==

== ENCOUNTER → 2025-07-31 16:29 | Outpatient (BNV) | payer MEDICARE, SELFPAY | PROVIDERS: Emergency Provider Emergency Medicine; Visit Provider Radiology Diagnostic Radiology | DX: R10.32 Left lower quadrant pain (principal) | CPT/HCPCS: 74176 ==